=== PATIENT | female | born 1995 | race Caucasian/White ===

== ENCOUNTER 2024-06-29 09:46 | Outpatient (CLI) | payer SELFPAY | END 2024-06-29 09:47 | disposition home or self-care (01) | LOC: AMB 07-02 15:43 | PROVIDERS: Visit Provider Emergency Medicine | DX: T14.90XA Injury, unspecified, initial encounter (principal); V47.0XXA Car driver injured in collision with fixed or stationary object in nontraffic accident, initial encounter; Y92.411 Interstate highway as the place of occurrence of the external cause | CPT/HCPCS: A0998 ==